=== PATIENT | female | born 1960 | race Caucasian/White ===

== ENCOUNTER 2017-03-23 10:45 | Day surgery (SDC) | payer BC ==
[2017-03-23] MEDS ORDERED: Lactated Ringers 1,000 ML IV SCH (11:00)
[2017-03-23] MEDS ORDERED: Sodium Chloride 0.9% 10 ML Syringe FLUSH PRN (11:00)
--- NOTE | 2017-03-23 11:54 | PCM.PN ---
- General Info Date of Service: 03/23/17 - Review of Systems Systems Review Comment:: 56-year-old female referred for her initial screening colonoscopy. She denies any recent changes in her bowel pattern. She is medically stable to proceed today with no significant change in her health status since her recent physical exam which is reviewed. I discussed the proposed colonoscopy with the patient. Risks such as but not limited to bleeding and GI injury or discussed. She appears to understand and agrees to proceed. - Patient Data Vitals - most recent: Last Vital Signs Temp 98.3 F 03/23/17 11:34 Pulse 60 03/23/17 11:34 Resp 20 03/23/17 11:34 BP 110/72 03/23/17 11:34 Pulse Ox 99 03/23/17 11:34 Weight - most recent: 95.254 kg Med Orders - Current: Current Medications Lactated Ringer's (Ringers, Lactated) 1,000 mls @ 125 mls/hr IV ASDIRECTED SALUD Last Admin: 03/23/17 11:48 Dose: 125 mls/hr Sodium Chloride (Saline Flush) 10 ml FLUSH ASDIRECTED PRN PRN Reason: Keep Vein Open - Problem List Review Problem List Initiated/Reviewed/Updated: Yes - My Orders Last 24 Hours: My Active Orders 03/23/17 11:00 Patient Status [ADT] Routine Peripheral IV Care [RC] . DIRECTED Verify Patient Consent Obtain [RC] ASDIRECTED Lactated Ringers [Ringers, Lactated] 1,000 ml IV ASDIRECTED Sodium Chloride 0.9% [Saline Flush] 10 ml FLUSH ASDIRECTED PRN Peripheral IV Insertion Adult [OM.PC] Routine - Assessment Assessment:: Colon cancer screening - Plan Plan:: Colonoscopy
[2017-03-23] MEDS ORDERED: Propofol 200 MG/20 ML SDV ONE ×3 (12:01→12:17)
--- NOTE | 2017-03-23 12:45 | PCM.OPNOTE ---
- General Post-Op/Procedure Note Date of Surgery/Procedure: 03/23/17 Operative Procedure(s): Colonoscopy with polypectomy Findings: Small sigmoid colon polyp Pre Op Diagnosis: Colon cancer screening Post-Op Diagnosis: Colon polyp Anesthesia Technique: MAC Primary Surgeon: Geoffrey Solano Pathology: Sigmoid colon polyp Output, Urine Amount: 0 EBL in mLs: 0 Complications: None Condition: Good Free Text/Narrative:: Intake & Output 03/22/17 03/23/17 03/23/17 22:59 06:59 14:59 Intake Total 700 Balance 700
--- NOTE | 2017-03-23 14:16 | OR ---
Date of Procedure: 03/23/2017 PREOPERATIVE DIAGNOSIS: Colon cancer screening. POSTOPERATIVE DIAGNOSIS: Sigmoid colon polyp. OPERATION PERFORMED: Colonoscopy with polypectomy. INDICATIONS FOR SURGERY: This is a 56-year-old female who was referred for her initial screening colonoscopy. FINDINGS: A single small polyp was noted in the sigmoid colon, this is 5 mm in diameter, sessile in configuration. The remainder of the colon appears normal. DESCRIPTION OF PROCEDURE: The patient was taken to the operating room. She was given intravenous sedation and with her in the left lateral decubitus position, digital rectal exam was performed showing no rectal masses. The Olympus colonoscope was inserted into the rectum. Retroflexed examination of the rectal canal was performed. The scope was then carefully advanced through the entire length of the colon until the cecum was reached. Cecal acquisition was confirmed by noting the normal internal cecal anatomy as well as identifying the light to transilluminate the abdominal wall in the right lower quadrant. The ileocecal valve was identified and cannulated, and the terminal ileum examined and also appeared normal. The scope was then slowly withdrawn sequentially re- examining the colonic segments. In the sigmoid colon, the above-described polyp was identified, it was removed with a cautery snare and retrieved into a polyp trap. The examination was completed and with no sign of any complication, the scope was removed and the patient was taken from the operating room in satisfactory condition. ESTIMATED BLOOD LOSS: Zero. COMPLICATIONS: None. PROGNOSIS: Good. CURTIS Solano MD /[id number]
[2017-03-23 15:57] VITALS: BP 136/71
== END 2017-03-23 13:50 | disposition home or self-care (01) ==
LOC: LL.SDS 10:45
PROVIDERS: ATTEND Surgery
DX: Z12.11 Encounter for screening for malignant neoplasm of colon (principal); D12.5 Benign neoplasm of sigmoid colon; Z98.84 Bariatric surgery status; E53.8 Deficiency of other specified B group vitamins; J31.0 Chronic rhinitis; E03.9 Hypothyroidism, unspecified; E78.00 Pure hypercholesterolemia, unspecified; F32.5 Major depressive disorder, single episode, in full remission; F41.1 Generalized anxiety disorder; F51.04 Psychophysiologic insomnia; I10 Essential (primary) hypertension; Z90.710 Acquired absence of both cervix and uterus; Z88.8 Allergy status to other drugs, medicaments and biological substances; Z79.899 Other long term (current) drug therapy; Z91.02 Food additives allergy status
CPT/HCPCS: 45385; J2704; J7120